=== PATIENT | female | born 1990 | race African-American/Black ===

== ENCOUNTER 2024-12-20 11:08 | Emergency (ER) | payer MEDICAID ==
[~2024-12-20] VITALS: Ht 170.2 cm; Wt 55.7 kg
[2024-12-20 11:13] VITALS: O2SAT 100
[2024-12-20] MEDS: KETOROLAC 15MG/ML VIAL IM ONE (13:33)
[2024-12-20] MEDS: CYCLOBENZAPRINE 10MG TABLET PO ONE (13:34)
[2024-12-20 14:02] LABS: CLARITY URINE CLEAR (CLEAR); COLOR URINE YELLOW (YELLOW); GLUCOSE URINE NEGATIVE (NEGATIVE); KETONES URINE NEGATIVE (NEGATIVE); LEUKOCYTE ESTERASE URINE NEGATIVE (NEGATIVE); NITRITE URINE NEGATIVE (NEGATIVE); OCCULT BLOOD URINE NEGATIVE (NEGATIVE); PH URINE 7.5 (4.5-8.0); PROTEIN URINE NEGATIVE (NEGATIVE); SPECIFIC GRAVITY URINE 1.013 (1.005-1.030)
[2024-12-20 14:08] LABS: UCG SCREEN NEGATIVE
[2024-12-20] MEDS: NAPROXEN 250MG TABLET PO ONE (16:26)
[2024-12-20] MEDS ORDERED: CYCL10TA21 MT (16:49)
[2024-12-20] MEDS ORDERED: NAPR-681 MT (16:49)
[2024-12-20 17:02] VITALS: BP 124/80; PULSE 79; RESP 18; TEMP 36.8; O2SAT 100
== END 2024-12-20 17:18 | disposition home or self-care (01) ==
LOC: ER 11:08
DX: M54.50 Low back pain, unspecified (principal); Z79.1 Long term (current) use of non-steroidal anti-inflammatories (NSAID); Z79.899 Other long term (current) drug therapy
CPT/HCPCS: 81003; 81025; 72100; 96372; 99284; J1885; Z7610